=== PATIENT | female | born 1995 | race Two or more races ===

== ENCOUNTER 2024-04-09 20:12 | Emergency (ER) | payer OTHER ==
[~2024-04-09] VITALS: Ht 165.1 cm; Wt 50.8 kg
[2024-04-09] MEDS ORDERED: AMPHETAMINE SUL10 MG (20:27)
[2024-04-09] MEDS ORDERED: INDERAL XL80 MG (20:27)
[2024-04-09] MEDS ORDERED: PREGABALIN75 MG PO (20:27)
[2024-04-09] MEDS ORDERED: LINZESS145 MCG PO (20:28)
[2024-04-09] MEDS ORDERED: FLUOXETINE HCL60 MG (20:28)
[2024-04-09] MEDS ORDERED: BUPROPION XL450 MG (20:28)
[2024-04-09] MEDS ORDERED: ONDANSETRON HCL 2 MG/ML VIAL ONE (21:09)
[2024-04-09] MEDS ORDERED: 0.9 % SODIUM CHLORIDE 1,000 ML IV ONE (21:15)
[2024-04-09] MEDS ORDERED: ONDANSETRON HCL 2 MG/ML VIAL IV ONE (21:15)
[2024-04-09 21:39] LABS: HEMATOCRIT 42.5 % (36.0-45.00); MEAN CORPUSCULAR HEMOGLOBIN 30.7 pg (27.00-32.0); PLATELET COUNT 272 K/uL (150-450); RED BLOOD COUNT 4.57 M/uL (4.00-6.00); RED CELL DISTRIBUTION WIDTH 13.5 % (11.5-14.5)
[2024-04-09 22:09] LABS: ALBUMIN 3.9 gm/dL (3.4-5.0); BILIRUBIN TOTAL 0.24 mg/dL (0.3-1.2); CALCIUM 9.4 mg/dL (8.5-10.1); CREATININE SERUM 0.56 mg/dL (0.55-1.02); GFR 127.99; GLOBULINA 3.3 G/DL (2.4-3.5); POTASSIUM 4.22 mEq/L (3.5-5.1); TOTAL PROTEIN 7.2 gm/dL (6.4-8.2)
== END 2024-04-10 00:21 | disposition home or self-care (01) ==
LOC: ER 20:14
PROVIDERS: General Practice
DX: R11.2 Nausea with vomiting, unspecified (principal); Q79.69 Other Ehlers-Danlos syndromes; F32.89 Other specified depressive episodes; Z20.822 Contact with and (suspected) exposure to COVID-19
CPT/HCPCS: 36415; 93005; 96365; 99283; J2405; J7030